=== PATIENT | female | born 2005 | race African-American/Black ===

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

== ENCOUNTER 2025-06-23 17:37 | Emergency (ER) | payer SELFPAY ==
[2025-06-23] MEDS ORDERED: Lidocaine 1% w/Epinephrine 1:100K 20 ML VIAL ONE (18:54)
[2025-06-23] MEDS ORDERED: Boostrix 0.5 ML (Tdap) VIAL (>/=7 yrs of age) ONE (19:17)
== END 2025-06-23 21:16 | disposition home or self-care (01) ==
LOC: ERS 17:37
DX: S52.571A Other intraarticular fracture of lower end of right radius, initial encounter for closed fracture (principal); S01.81XA Laceration without foreign body of other part of head, initial encounter; J45.909 Unspecified asthma, uncomplicated; F17.290 Nicotine dependence, other tobacco product, uncomplicated; Z23 Encounter for immunization; V00.831A Fall from motorized mobility scooter, initial encounter; Y99.0 Civilian activity done for income or pay
CPT/HCPCS: 12011; 90471; 90715